=== PATIENT | male | born 1995 | race Caucasian/White ===

== ENCOUNTER 2019-05-07 09:42 | Emergency (ER) | payer BC ==
[~2019-05-07] VITALS: Ht 172.7 cm; Wt 72.7 kg
[2019-05-07 09:49] VITALS: BP 142/71; Ht 172.7 cm; Wt 72.7 kg
[2019-05-07] MEDS ORDERED: ERYTHROMYCIN OPT1 GM EACH EYE (10:45)
== END 2019-05-07 11:00 | disposition home or self-care (01) ==
LOC: D.ER 09:42
DX: S05.02XA Injury of conjunctiva and corneal abrasion without foreign body, left eye, initial encounter (principal); X58.XXXA Exposure to other specified factors, initial encounter

== ENCOUNTER 2019-06-25 16:16 | Emergency (ER) | payer BC ==
[~2019-06-25] VITALS: Ht 170.2 cm; Wt 72.7 kg
[~2019-06-25 16:16] MED LIST: ERYTHROMYCIN OPT1 GM EACH EYE
[2019-06-25 16:28] VITALS: Ht 170.2 cm; Wt 72.7 kg
[2019-06-25 16:58] LABS: BASOPHILS 0.2 % (0-2); EOSINOPHILS 1.3 % (0-7); HEMATOCRIT 47.5 % (42.0-54.0); HEMOGLOBIN 16.2 g/dL (13.5-17.5); IMMATURE GRANULOCYTES 0.2 % (0-5); LYMPHOCYTES 12.5 % (15-50); MCH 31.4 pg (26.0-34.0); MCHC 34.1 g/dL (31.0-37.0); MCV 92.1 fL (80.0-100.0); MEAN PLATELET VOLUME 9.9 fL (7.4-10.4); MONOCYTES 9.6 % (2-11); NEUTROPHILS 76.2 % (40-80); PLATELET COUNT 244 10x3/uL (130-400); RBC 5.16 10x6/uL (4.20-6.10); WBC 12.7 10x3/uL (4.8-10.8)
[2019-06-25 17:09] LABS: UDS - AMPHET NEGATIVE QUAL (NEGATIVE); UDS - BARB NEGATIVE QUAL (NEGATIVE); UDS - BENZO NEGATIVE QUAL (NEGATIVE); UDS - COCAINE NEGATIVE QUAL (NEGATIVE); UDS - OPIATE NEGATIVE QUAL (NEGATIVE); UDS - PCP NEGATIVE QUAL (NEGATIVE); UDS - THC POSITIVE QUAL (NEGATIVE)
[2019-06-25 17:10] LABS: CALC OSMOLALITY 278 mosm/kg (275-300); CHLORIDE - SERUM 102 mmol/L (98-107); GLUCOSE 114 mg/dL (74-106); POTASSIUM - SERUM 3.6 mmol/L (3.5-5.1); SODIUM 140 mmol/L (136-145); UREA NITROGEN 10 mg/dL (7-18); eGFR NON AFRICAN AMERICAN > 90 mL/min (90-120)
[2019-06-25 17:15] LABS: ALBUMIN 4.4 g/dL (3.4-5.0); ALKALINE PHOSPHATASE 75 U/L (30-120); ALT (SGPT) 18 U/L (10-68); AMYLASE - SERUM 45 U/L (25-115); BILIRUBIN - TOTAL 0.51 mg/dL (0.2-1.3); PROTEIN - SERUM 7.7 g/dL (6.4-8.2)
[2019-06-25 17:22] LABS: BILIRUBIN NEGATIVE (NEGATIVE); GLUCOSE NEGATIVE (NEGATIVE); KETONE NEGATIVE (NEGATIVE); NITRITE NEGATIVE (NEGATIVE); UROBILINOGEN NORMAL (NORMAL)
[2019-06-25 17:42] LABS: LIPASE 46 U/L (73-393)
[2019-06-25] MEDS ORDERED: ZOFRAN ODT4 MG/UDTAB PO (17:52)
[2019-06-25] MEDS ORDERED: PEPCID AC20 MG PO (17:52)
[2019-06-25 18:25] VITALS: BP 128/77
== END 2019-06-25 18:20 | disposition home or self-care (01) ==
LOC: D.ER 16:16
PROVIDERS: Family Medicine
DX: R11.2 Nausea with vomiting, unspecified (principal); R19.7 Diarrhea, unspecified